=== PATIENT | male | born 1990 | race Caucasian/White ===

== ENCOUNTER 2023-03-06 11:57 | Emergency (ER) | payer OTHER, SELFPAY ==
[2023-03-06 12:13] VITALS: BP 127/82; PULSE 58; RESP 20; TEMP 36.6; O2SAT 97
--- NOTE | 2023-03-06 12:43 | PC.NURSE ---
PT REFUSING COVID, INFLUENZA AND STREP TESTING. NANCY GREEN SCARFER ADVISED.
--- NOTE | 2023-03-06 13:05 | ED.GENADULT ---
HPI - General Adult General Chief complaint: Upper Respiratory Infection Stated complaint: poss sinus infection Source: patient Mode of arrival: ambulatory Limitations: no limitations History of Present Illness HPI narrative: Patient presents for evaluation of rhinorrhea. Symptom onset 2 days ago. Drainage is clear in appearance. He denies any sore throat, fever, chills, nausea, vomiting, or SOB. He has an occasional cough 2/2 postnasal drainage. He smokes approximately 1 pack per day. No recent sick contacts to his knowledge. He took 1 dose of Sudafed without considerable improvement in his symptoms thereafter. Related Data Home Medications Medication Instructions Recorded Confirmed No Home Medications 03/06/23 03/06/23 Allergies Allergy/AdvReac Type Severity Reaction Status Date / Time codeine Allergy Unknown Verified 03/06/23 12:18 Review of Systems Review of Systems: CONSTITUTIONAL: Denies fever, chills, or sweats. EYES: Denies visual changes, redness, or discharge. ENT: Reports clear rhinorrhea. Denies congestion, sore throat, or otalgia. CARDIOVASCULAR: Denies chest pain, palpitations, or edema. RESPIRATORY: Reports occasional cough from postnasal drainage. Denies shortness of breath GASTROINTESTINAL: Denies abdominal pain, nausea, vomiting, or diarrhea. GENITOURINARY: Denies dysuria or hematuria. SKIN: Denies rash or itching. MUSCULOSKELETAL: Denies back pain, joint pain, or myalgia. NEUROLOGIC: Denies headache, numbness, dizziness, or weakness. PSYCHIATRIC: Denies anxiety or depression. [facility] Past Medical History Medical History Family history non-contributory No pertinent past medical history Surgical History Surgical History No pertinent past surgical history Family History Family History Mother Family history non-contributory Social History Social History Smoking packs per day: 1 Smoking cigarettes per day: 20.0 Smoking status: Current every day smoker Substance use: never Gender identity (if verbalized by the patient): Male Spiritual care concerns: No Exam Narrative: GENERAL: Well-appearing, well-nourished, and in no acute distress. HEAD: Normocephalic, atraumatic. EYES: PERRLA and EOMI. ENT: Nares clear, no rhinorrhea or epistaxis. Mucous membranes moist. Oropharynx without tonsillar hypertrophy exudate or other lesions. Bilateral TMs pearly stack nonbulging NECK: Supple. No adenopathy or masses. No carotid bruits or JVD CHEST: Clear to auscultation. No respiratory distress. No wheezes rales or rhonchi HEART: Regular rate and rhythm. No murmur heard. Normal peripheral pulses. ABDOMEN: Soft, nontender, nondistended, normal active bowel sounds. EXTREMITIES: Normal range of motion. No edema. SKIN: Warm, dry, no rash. NEURO: No focal deficits. Alert and oriented x3. PSYCH: Normal mood and affect. Course Course Emergency Course: This is a 32-year-old male who presented for evaluation of a runny nose. He declined any testing. I advised that phenylephrine would likely be of more benefit than sudafed as his primary complaint was rhinorrhea as opposed to congestion. He requested a note for work which was provided. Follow-up with primary provider. Go to the ER for worsening symptoms. Patient in agreement with plan of care Level of Care: Express Care Visit Vital Signs Vital signs: Vital Signs Temperature 36.6 C 03/06/23 12:13 Pulse Rate 58 L 03/06/23 12:13 Respiratory Rate 20 03/06/23 12:13 Blood Pressure 127/82 03/06/23 12:13 Pulse Oximetry 97 03/06/23 12:13 Oxygen Delivery Room Air 03/06/23 12:13 Temperature 36.6 C 03/06/23 12:13 Pulse Rate 58 L 03/06/23 12:13 Respiratory Rate 20
== END 2023-03-06 13:14 | disposition home or self-care (01) ==
PROVIDERS: Emergency Provider Nurse Practitioner; PCP Physician Assistant
DX: J32.9 Chronic sinusitis, unspecified (principal); F17.210 Nicotine dependence, cigarettes, uncomplicated
CPT/HCPCS: 99213; G0463

== ENCOUNTER 2024-11-29 08:50 | Emergency (ER) | payer OTHER, SELFPAY ==
[2024-11-29 08:58] VITALS: BP 115/79; PULSE 58; RESP 20; TEMP 36.7; O2SAT 98
--- OUTSIDE RECORDS SUMMARY | 2024-11-29 08:58 | XMS_ITS | Clinical Summary ---
Author Organization [facility] Address [address] [place] [address] Care Team Providers Care Rim Fire Priming Tool Setter Name Role Phone Antwan Loaiza Primary Care Provider [phone] Allergies Active Allergy Reactions Criticality Noted Date Comments Codeine Hydrocodone-Acetaminophen Medications albuterol HFA (ProAir HFA) 90 mcg/actuation inhaler Inhale 2 puffs every 4 (four) hours as needed for wheezing or shortness of breath 8.5 g Active Active Problems Problem Noted Date Diagnosed Date COVID-19 01/04/2021 Assessment & Plan (01/04/2021 1:15 PM CDT): Prescription sent for albuterol inhaler as well as prednisone taper. In addition patient instructed to Self-isolate 10 days from start of symptoms Increase fluid intake Report new or worsening symptoms Warning signs warranting immediate medical care: chest pain, trouble breathing, worsening shortness of breath Surgical History Surgery Date Site/Laterality Comments TONSILLECTOMY Tonsillectomy ANTERIOR CRUCIATE LIGAMENT REPAIR left Medical History Medical History Date Comments No pertinent past medical history Family History Medical History Relation Name Comments Diabetes Father Heart disease Father Hyperlipidemia Father No Known Problems Mother Breast cancer Other 1 Family history of Cancer, breast; Cancer Other 2 Family history of Cancer, unknown; Relation Name Status Comments Father Alive Mother Alive Other 1 Other 2 Social History Tobacco Use Types Packs/Day Years Used Date Smoking Tobacco: Never Smokeless Tobacco: Never Alcohol Use Standard Drinks/Week Comments No 0 (1 standard drink = 0.6 oz pur e alcohol) Personal Safety Answer Date Recorded Getting School Help Needed Not on file 06/26 Sex and Gender Information Value Date Recorded Sex Assigned at Not on file 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 Gender Identity Not on file Sexual Orientation Not on file Obstetrics History Last Filed Vital Signs Vital Sign Reading Time Taken Comments Blood Pressure 128/86 12/30/2020 9:05 AM CDT Pulse 97 12/30/2020 9:05 AM CDT Temperature 36.4 C (97.6 F) 12/30/2020 9:05 AM CDT Respiratory Rate 20 12/30/2020 9:05 AM CDT Oxygen Saturation 96% 12/30/2020 9:05 AM CDT Inhaled Oxygen Concentration - - Weight 138.7 kg (305 lb 12.8 oz) 12/30/2020 9:05 AM CDT Height 195.6 cm (6' 5) 12/30/2020 9:05 AM CDT Body Mass Index 36.26 12/30/2020 9:05 AM CDT Plan of Treatment Not on file Insurance [facility] Care Teams Rim Fire Priming Tool Setter Relationship Specialty Start Date End Date Antwan Loaiza PA [address] [place] [address] PCP - General 05/15/16
--- OUTSIDE RECORDS SUMMARY | 2024-11-29 08:58 | XMS_ITS | Clinical Summary ---
Author Organization [facility] Address [address] [place] [address] Phone Care Team Providers Care Technical Internship Name Role Phone Antwan Loaiza Primary Care Provider [phone] Allergies Active Allergy Reactions Criticality Noted Date Comments Codeine Hives 10/03/2022 Hydrocodone-Acetaminophen Hives Medium 02/06/2019 Medications traMADol (ULTRAM) 50 MG Tablet Take 1 Tab by mouth every 6 hours as needed for Moderate or more severe pain. 20 Tab 9 Active Additional Information Patient not taking.Reported on 12/23/2022 Active Problems No known active problems Immunizations Immunization Administration Dates Next Due DTP Vaccine 04/01/1995, 3,08/20/1991,04/12,02/12/1991 Hepatitis B Vaccine, Pediatric/adolescent 07/05/1996,01/25/1996,04/01/1995 Hib Vaccine,unspecified Formulation 05/1994,08/20/1991,04/12/1991,02/12 Influenza Vaccine,unspecifie d Formulation 04/10/2003 MMR Vaccine 04/01/1995,09/03/1993 Meningococcal C Conjugate Vaccine 03/07/2006 OPV 04/01/1995, 3,04/12/1991,02/12 TD VACCINE 07/30/2004 TDAP Vaccine 03/07/2006 Td Vaccine (preservative free) 07/16/2024 Social History Tobacco Use Types Packs/Day Years Used Date Smoking Tobacco: Every Day Cigarettes Smokeless Tobacco: Never Tobacco Cessation:Ready to Q uit: Not Asked; Counseling Given: Not Answered Alcohol Use Standard Drinks/Week Comments Not Currently 0 (1 standard drink = 0.6 oz pur e alcohol) Sex and Gender Information Value Date Recorded Sex Assigned at Not on file Legal Sex Male 11:07 PM CDT Gender Identity Not on file Sexual Orientation Not on file Last Filed Vital Signs Vital Sign Reading Time Taken Comments Blood Pressure 133/82 07/16/2024 12:37 PM CDT Pulse 58 07/16/2024 12:37 PM CDT Temperature 36.4 C (97.5 F) 07/16/2024 12:37 PM CDT Respiratory Rate 18 07/16/2024 12:37 PM CDT Oxygen Saturation 100% 07/16/2024 12:37 PM CDT Inhaled Oxygen Concentration - - Weight 127 kg (280 lb) 07/16/2024 12:37 PM CDT Height 195.6 cm (6' 5) 07/16/2024 12:37 PM CDT Body Mass Index 33.2 07/16/2024 12:37 PM CDT Plan of Treatment Health Maintenance Due Date Last Done Comments Hepatitis C Virus (HCV) Screening 1990 Human Papillomavirus (HPV) Immunization (1 - Male 3-dose series) 2005 Pneumococcal Immunization Combined (1 of 2 - PCV) 2009 SARS-COV-2 Immunization (2 - season) 2024 05/11/2021 Influenza Immunization (#1) 2024 04/10/2003 DTaP/Tdap/Td Immunization (8 - Td or Tdap) 07/16/2034 07/16/2024, 03/07/2006, 07/30/2004, Additional history exists Respiratory Syncytial Virus (RSV) Immunization (Adult) (1 - 1-dose 75+ series) 2065 Hepatitis B Immunization Completed 997, 01/25/1996, 04/01/1995 Meningococcal Immunization (ACWY) Aged Out No longer eligible based on patient's age to complete this topic Rotavirus Immunization Aged Out No lo nger eligible based on patient's age to complete this topic Insurance [facility] Care Teams Technical Internship Relationship Specialty Start Date End Date Antwan Loaiza, LAURENCE [address] [place] [id number] PCP - General Physician General Duty Nurse 02/06/19
--- OUTSIDE RECORDS SUMMARY | 2024-11-29 08:58 | XMS_ITS | Referral Summary ---
Author Organization [facility] Address [address] [place] [address] Care Team Providers Care Tungsten Refiner Name Role Phone Antwan Loaiza Primary Care Provider [phone] Allergies Active Allergy Reactions Criticality Noted Date [...] pain, trouble breathing, worsening shortness of breath Social History Tobacco Use Types Packs/Day Years Used Date Smoking Tobacco: Never Smokeless Tobacco: Never Alcohol Use Standard Drinks/Week Comments No 0 (1 standard drink = 0.6 oz pur e alcohol) Personal Safety Answer Date Recorded Getting School Help Needed Not on file 06/26 Sex and Gender Information Value Date Recorded Sex Assigned at Not on file 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
--- NOTE | 2024-11-29 09:19 | ED_ITS ---
HPI - URI/Sore Throat General Chief Complaint: Upper Respiratory Infection Stated Complaint: Coughing Time Seen by Provider: 11/29/24 09:09 Source: patient and RN notes reviewed Mode of arrival: ambulatory Limitations: no limitations History of Present Illness HPI Narrative: Patient presents today complaining of a 6 day history of postnasal drip, cough, sinus pressure. States he had a subjective fever for 1 day at onset of symptoms, but none since then. He had diarrhea 2 days ago but resolved after 1 day. Denies chest pain or shortness of breath. He has tried Mucinex and Sudafed with mild relief. No history of asthma or COPD. Quit smoking 1 year ago. Related Data Home Medications ?Medication ?Instructions ?Recorded ?Confirmed ?Last Taken ?Type No Home Medications 03/06/23 11/29/24 Unknown History Allergies Allergy/AdvReac Type Severity Reaction Status Date / Time acetaminophen (From Vicodin) Allergy Intermediate Rash Verified 11/29/24 09:14 codeine Allergy Intermediate Rash Verified 11/29/24 09:14 hydrocodone (From Vicodin) Allergy Intermediate Rash Verified 11/29/24 09:14 PMFSH Past Medical History Medical History Family history non-contributory No pertinent past medical history Surgical History Surgical History No pertinent past surgical history Family History Family History Mother Family history non-contributory Social History Social History (Updated 11/29/24 @ 09:22 by Venus Larry, [facility], ) Smoking status: Former smoker Tobacco type: cigarettes Smoking end date: 11/30/23 Substance use: never Gender identity (if verbalized by the patient): Male Spiritual care concerns: No Comments At time of signature, I have reviewed and agree with nursing past medical, surgical, social and family history unless otherwise noted. Please see nursing chart for further information. There is no relevant family history pertinent to the presenting complaint Exam Narrative: GENERAL: Well-appearing, well-nourished, and in no acute distress. HEAD: Normocephalic, atraumatic. EYES: EOMI. No redness or drainage. Conjunctivae normal. ENT: Mucous membranes pink and moist. Nares clear with mild rhinorrhea.. TMs normal bilaterally. Throat normal. Uvula midline. NECK: Normal AROM. Supple. No lymphadenopathy. CHEST: No respiratory distress. Clear to auscultation. HEART: Regular rate and rhythm. No murmur appreciated. EXTREMITIES: Normal range of motion. No edema. SKIN: Warm, dry, no rash. Capillary refill normal. Normal skin turgor. NEURO: No focal deficits. Alert and oriented x3. Gait steady. PSYCH: Normal affect. No signs of depression or anxiety. Course Course Level of Care: Express Care Visit Vital Signs Vital signs: Vital Signs Temperature 98.0 F 11/29/24 08:58 Pulse Rate 58 L 11/29/24 08:58 Respiratory Rate 20 11/29/24 08:58 Blood Pressure 115/79 11/29/24 08:58 Pulse Oximetry 98 11/29/24 08:58 Oxygen Delivery Room Air 11/29/24 08:58 Temperature 98.0 F 11/29/24 08:58 Pulse Rate 58 L 11/29/24 08:58 Respiratory Rate 20 11/29/24 08:58 Blood Pressure 115/79 11/29/24 08:58 Pulse Oximetry 98 11/29/24 08:58 Oxygen Delivery Room Air 11/29/24 08:58 Review MDM - URI/Sore Throat MDM Narrative Medical decision making narrative: 33-year-old male patient presents today with a 6 day history of postnasal drip, cough, sinus pressure with 1 day of fever and 2 days of diarrhea. Diarrhea and subjective fever have resolved. No chest pain or shortness of breath. Mucinex and Sudafed have provided some mild relief. Exam grossly normal aside from some mild rhinorrhea. Exam consistent with viral URI. Patient declined prescription for cough medicine stating he has some Robitussin at home. No testing indicated at this time. Anticipatory guidance given. Differential Diagnosis Differential diagnosis: Likely upper respiratory infection, sinusitis, viral infection and bronchitis Critical Care Time Critical Care Time Critical Care Time: No Discharge Plan Discharge Clinical Impression: Upper respiratory infection Qualifiers: URI type: unspecified URI Qualified Code(s): J06.9 - Acute upper respiratory infection, unspecified Patient Disposition: Home Condition: Stable Instructions: Upper Respiratory Infection (DC) Additional Instructions: Your symptoms are likely due to a viral illness, which is not treated with antibiotics. Virus symptoms can last for up to 7-10days. Take ibuprofen or Aleve for pain or fever. Rest and stay hydrated. Follow up with your PCP in 7 days if symptoms are not improving. Go to the ER immediately if you develop shortness of breath, difficulty swallowing, or any other concerning symptoms. Patient Language: Honduran Prescriptions: No Action No Home Medications Follow-up/Referrals: Josse,JAYNA Orlando [Primary Care Provider] - Stand Alone Forms: Work/School Release IP Time of Disposition: 09:20
== END 2024-11-29 09:22 | disposition home or self-care (01) ==
PROVIDERS: Emergency Provider Nurse Practitioner; PCP Physician Assistant
DX: J06.9 Acute upper respiratory infection, unspecified (principal); Z87.891 Personal history of nicotine dependence
CPT/HCPCS: 99211; G0463

== ENCOUNTER 2025-02-13 15:15 | Emergency (ER) | payer OTHER, SELFPAY ==
[2025-02-13 15:25] VITALS: BP 122/70; PULSE 62; RESP 18; TEMP 36.2; O2SAT 100
--- NOTE | 2025-02-13 15:31 | ED.URI ---
HPI - URI/Sore Throat General Chief Complaint: Upper Respiratory Infection Stated Complaint: Sinus Problem Time Seen by Provider: 02/13/25 15:31 Source: patient, RN notes reviewed and old records reviewed Mode of arrival: ambulatory Limitations: no limitations History of Present Illness HPI Narrative: 34 year old male presents to [facility] care with complaints of 1 week duration of sore throat, cough, sinus congestion with drainage,and some hoarseness. Patient reports that congestion and drainage are worse in the morning and his symptoms have become worse for the past 2 days.with no known fevers. Patient reports that he has been taking Theraflu and using cough drops for his symptoms. Patient reports some expectoration of thick clear sputum. MD elicited complaint: cough, sore throat, rhinorrhea, nasal congestion and sinus pain Pertinent past history: sinusitis Onset (ago): week(s) (1) Consistency: progressively worsening Pain scale (0-10): 3 Description of mucous: clear (thick) Able to tolerate fluids by mouth: Yes Treatments prior to arrival: other (Theraflu and cough drops) Related Data Allergies Allergy/AdvReac Type Severity Reaction Status Date / Time acetaminophen (From Vicodin) Allergy Intermediate Rash Verified 02/13/25 15:25 codeine Allergy Intermediate Rash Verified 02/13/25 15:25 hydrocodone (From Vicodin) Allergy Intermediate Rash Verified 02/13/25 15:25 Review of Systems Review of Systems: CONSTITUTIONAL: Denies malaise, chills, sweats, or fever. EYES: Denies visual changes, redness, or discharge. ENT: Reports rhinorrhea, congestion, sinus pain,no otalgia and no sore throat. CARDIOVASCULAR: Denies chest pain, palpitations, or edema. RESPIRATORY: Reports productive cough.? Denies dyspnea. GASTROINTESTINAL: Denies abdominal pain, nausea, vomiting, diarrhea SKIN: Denies rash or itching. MUSCULOSKELETAL: Denies myalgia. NEUROLOGIC: Denies headache. All systems reviewed & are unremarkable except as noted in HPI and below PMFSH Past Medical History Medical History (Updated 02/14/25 @ 08:58 by Carolyne Mcgee NP) Sinusitis Family history non-contributory Surgical History Surgical History No pertinent past surgical history Family History Family History Mother Family history non-contributory Social History Social History (Updated 11/29/24 @ 09:22 by Venus Larry, [facility], ) Smoking status: Former smoker Tobacco type: cigarettes Smoking end date: 11/30/23 Substance use: never Gender identity (if verbalized by the patient): Male Spiritual care concerns: No Comments At time of signature, agree with nursing past medical, surgical, social and family history. There is no relevant family history pertinent to the presenting complaint Exam Narrative: GENERAL: Well-appearing, well-nourished, and in no acute distress. HEAD: Normocephalic EYES: PERRLA, conjunctivae clear ENT: Nares clear, turbinates edematous and erythematous, clear discharge, sinus pressure. Mucous membranes moist. TM pearly stack with dull light reflex bilaterally; no tragal tenderness. Oropharynx erythematous without lesions. Tonsils not enlarged and without exudate, no drooling, positive for hoarseness, no trismus, uvula midline.post nasal drainage NECK: Supple. No lymphadenopathy CHEST: Clear to auscultation, breath sounds equal. No wheezing, rhonchi, rales, or stridor. No respiratory distress, speaks in full sentences. cough noted, reports expectoration of thick sputum SAO2 100% on room air HEART: Regular rate and rhythm. No murmur heard. SKIN: Warm, dry, no rash. NEURO: Alert and oriented x3. PSYCH: Normal mood and affect Course Course Emergency Course: Patient is aware of diagnosis, understands and agrees to treatment plan.? Anticipatory guidance given.? Patient agrees to follow-up as directed and is aware of reasons to seek care at the emergency department. Portions of this record may have been created with voice recognition software Level of Care: Express Care Visit Vital Signs Vital signs: Vital Signs Temperature 36.2 C L 02/13/25 15:25 Pulse Rate 62 02/13/25 15:25 Respiratory Rate 18 02/13/25 15:25 Blood Pressure 122/70 02/13/25 15:25 Pulse Oximetry 100 02/13/25 15:25 Oxygen Delivery Room Air 02/13/25 15:25 Temperature 36.2 C L 02/13/25 15:25 Pulse Rate 62 10/15/25 15:25 Respiratory Rate 18 02/13/25 15:25 Blood Pressure 122/70 02/13/25 15:25 Pulse Oximetry 100 02/13/25 15:25 Oxygen Delivery Room Air 02/13/25 15:25 Reviewed MDM - URI/Sore Throat MDM Narrative Medical decision making narrative: Differential diagnosis considered: Villanueva virus, strep pharyngitis, allergic rhinitis, upper respiratory tract infection, sinusitis, rhinosinusitis, nasopharyngitis. viral pharyngitis, otitis media, otitis externa, pneumonia, bronchitis, viral cough syndrome, viral syndrome, and influenza.? Exam findings show no acute concerns or changes; patient is non-toxic appearing and is in no distress.? Patient is appropriate for outpatient treatment and follow-up. Differential Diagnosis Differential diagnosis: Likely upper respiratory infection, sinusitis, viral infection, pharyngitis and other (strep pharyngitis, acute cough) Medical Records Attestation: I reviewed the patient's medical records. Lab Data Attestation: I reviewed the patient's lab results. Lab results narrative: strep screen negative,culture sent Labs: Lab Results 02/13/25 Range/Units 15:33 POC Grp A Strep Screen Negative (Negative) reviewed Critical Care Time Critical Care Time Critical Care Time: No Discharge Plan Discharge Clinical Impression: Cough in adult patient Upper respiratory infection Qualifiers: URI type: unspecified URI Qualified Code(s): J06.9 - Acute upper respiratory infection, unspecified Pharyngitis Qualifiers: Pharyngitis/tonsillitis etiology: unspecified etiology Qualified Code(s): J02.9 - Acute pharyngitis, unspecified Patient Disposition: Home Condition: Stable Instructions: Pharyngitis (ED), Acute Cough (ED) Additional Instructions: Increase fluids especially juices and water Csnp-xhl-aegewky cough and cold medicine of your choice for your symptoms Cough tablets as directed for cough--do not bite, chew or suck on--swallow whole Zyrtec, Claritin or Lauren daily Steroids as directed--take with food heat to the face 20-30 minutes 4-6 times a day for pain Salt water gargles, throat lozenges or throat sprays as desired Mucinex daily for congestion and drainage If your symptoms persist, change or worsen significantly before you can contact your personal physician then please, without delay, go to the emergency department for further evaluation. Follow-up with PCP in 7-10 days or sooner if needed Patient Language: Wolof Prescriptions: New prednisone 20 mg tablet 20 mg PO BID Qty: 10 0RF Rx Instructions: take with food, pm dose before 7 pm Follow-up/Referrals: Josse,JAYNA Orlando [Primary Care Provider] Stand Alone Forms: Work/School Release IP Time of Disposition: 15:55 Quality [place] Coma Scale Eyes: Open Verbal: Oriented and Alert Motor: Follows Commands Jv Coma Total Score: 15
[2025-02-13 15:34] LABS: EDSTREPNEGPOS1 Negative (Negative)
--- OUTSIDE RECORDS SUMMARY | 2025-02-13 17:20 | XMS_ITS | Clinical Summary ---
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
--- OUTSIDE RECORDS SUMMARY | 2025-02-13 17:21 | XMS_ITS | Clinical Summary ---
Author Organization [facility] Address [address] [place] [address] Phone Care Team Providers Care Line Leader Name Role Phone Antwan Loaiza Primary Care Provider [phone] Allergies Active Allergy Reactions Criticality Noted Date [...] 1990 Human Papillomavirus (HPV) Immunization (1 - 3-dose SCDM series) 2017 Influenza Immunization (#1) 2024 04/10/2003 SARS-COV-2 Immunization (2 - season) 2024 05/11/2021 DTaP/Tdap/Td Immunization (8 - Td or Tdap) 07/16/2034 07/16/2024, 03/07/2006, 07/30/2004, Additional history exists Respiratory Syncytial Virus (RSV) Immunization (Adult) (1 - 1-dose 75+ series) 2065 Hepatitis B Immunization Completed 997, 01/25/1996, 04/01/1995 Meningococcal Immunization (ACWY) Aged Out No longer eligible based on patient's age to complete this topic Pneumococcal Immunization Combined Aged Out No longer eligible based on patient's age to complete this topic Rotavirus Immunization Aged Out No lo nger eligible based on patient's age to complete this topic Insurance [facility] [id number] Care Teams Line Leader Relationship Specialty Start Date End Date Antwan Loaiza, [address] [place] [address] PCP - General 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
== END 2025-02-13 16:00 | disposition home or self-care (01) ==
PROVIDERS: Emergency Provider Registered Nurse; PCP Physician Assistant
DX: J06.9 Acute upper respiratory infection, unspecified (principal); J02.9 Acute pharyngitis, unspecified; Z87.891 Personal history of nicotine dependence
CPT/HCPCS: 87081; 87880; 99213; G0463

== ENCOUNTER 2025-04-01 14:07 | Emergency (ER) | payer OTHER, SELFPAY ==
[2025-04-01 14:12] VITALS: BP 120/70; PULSE 55; RESP 20; TEMP 36.3; O2SAT 100
--- NOTE | 2025-04-01 14:12 | ED.GENADULT ---
HPI - General Adult General Chief complaint: Ear Stated complaint: Right Ear Pain Time Seen by Provider: 04/01/25 14:12 Source: patient, RN notes reviewed and old records reviewed Mode of arrival: ambulatory Limitations: no limitations History of Present Illness HPI narrative: 34 year old male who presents to [facility] care with complaints of right ear pain which has progressively gotten worse since last Tuesday. Patient reports that he has tried OTC eardrops without relief of symptoms. Patient reports no sinus drainage fevers or cough, denies any body aches. Patient reports history of ear infections in the past. MD complaint: right ear pain Onset (ago): day(s) (5-6 days) Severity: moderate Treatments prior to arrival: other (OTC ear drops) Related Data Allergies Allergy/AdvReac Type Severity Reaction Status Date / Time acetaminophen (From Vicodin) Allergy Intermediate Rash Verified 04/01/25 14:13 codeine Allergy Intermediate Rash Verified 04/01/25 14:13 hydrocodone (From Vicodin) Allergy Intermediate Rash Verified 04/01/25 14:13 Review of Systems Review of Systems: CONSTITUTIONAL: Denies malaise, chills, sweats, or fever. EYES: Denies visual changes, redness, or discharge. ENT: Reports no rhinorrhea, congestion, sinus pressure, + right otalgia and no sore throat. CARDIOVASCULAR: Denies chest pain, palpitations, or edema. RESPIRATORY: Reports no acute cough.? Denies dyspnea. GASTROINTESTINAL: Denies abdominal pain, nausea, vomiting, diarrhea SKIN: Denies rash or itching. MUSCULOSKELETAL: Denies myalgia. NEUROLOGIC: Denies headache. All systems reviewed & are unremarkable except as noted in HPI and below PMFSH Past Medical History Medical History Sinusitis Family history non-contributory Surgical History Surgical History No pertinent past surgical history Family History Family History Mother Family history non-contributory Social History Social History Smoking status: Former smoker Tobacco type: cigarettes Smoking end date: 11/30/23 Substance use: never Gender identity (if verbalized by the patient): Male Spiritual care concerns: No Comments At time of signature, agree with nursing past medical, surgical, social and family history. There is no relevant family history pertinent to the presenting complaint Exam Narrative: GENERAL: Well-appearing, well-nourished, and in no acute distress. HEAD: Normocephalic EYES: PERRLA, conjunctivae clear ENT: Nares clear, turbinates edematous and erythematous,scant clear discharge. Mucous membranes moist.Right TM red and bulging, Left TM pearly stack with dull light reflex; no tragal tenderness. Oropharynx erythematous without lesions. Tonsils not enlarged and without exudate, no drooling, no hoarseness, no trismus, uvula midline.post nasal drainage. NECK: Supple. No lymphadenopathy CHEST: Clear to auscultation, breath sounds equal. No wheezing, rhonchi, rales, or stridor. No respiratory distress, speaks in full sentences.no acute cough noted SAO2 100% on room air HEART: Regular rate and rhythm. No murmur heard. SKIN: Warm, dry, no rash. NEURO: Alert and oriented x3. PSYCH: Normal mood and affect Course Course Emergency Course: Patient is aware of diagnosis, understands and agrees to treatment plan.? Anticipatory guidance given.? Patient agrees to follow-up as directed and is aware of reasons to seek care at the emergency department. Portions of this record may have been created with voice recognition software Level of Care: Express Care Visit Vital Signs Vital signs: Vital Signs Temperature 36.3 C L 04/01/25 14:12 Pulse Rate 55 L 04/01/25 14:12 Respiratory Rate 20 04/01/25 14:12 Blood Pressure 120/70 04/01/25 14:12 Pulse Oximetry 100 04/01/25 14:12 Oxygen Delivery Room Air 04/01/25 14:12 Temperature 36.3 C L 04/01/25 14:12 Pulse Rate 55 L 04/01/25 14:12 Respiratory Rate 20 04/01/25 14:12 Blood Pressure 120/70 04/01/25 14:12 Pulse Oximetry 100 04/01/25 14:12 Oxygen Delivery Room Air 04/01/25 14:12 Reviewed Critical Care Time Critical Care Time Critical Care Time: No Discharge Plan Discharge Clinical Impression: Otitis media, right Qualifiers: Otitis media type: serous Chronicity: acute Recurrence: not specified as recurrent Qualified Code(s): H65.01 - Acute serous otitis media, right ear Patient Disposition: Home Condition: Stable Instructions: Antibiotic Form, Ear Infection (ED) Additional Instructions: Increase fluids especially juices and water Vufy-qzf-ylzcdyx cough and cold medicine of your choice for your symptoms Zyrtec Claritin or Lauren daily may include plain Sudafed in a.m. heat to the face 20-30 minutes 4-6 times a day for pain Salt water gargles, throat lozenges or throat sprays as desired Antibiotic as directed--finished the medication If your symptoms persist, change or worsen significantly before you can contact your personal physician then please, without delay, go to the emergency department for further evaluation. Follow-up with PCP in 7-10 days or sooner if needed Patient Language: Bahraini Prescriptions: New amoxicillin-pot clavulanate 875-125 mg tablet 1 tablet PO Q12H Qty: 20 0RF Rx Instructions: take all of prescription with food. encourage taking a probiotic while on this medication,or eating activa yogurt Follow-up/Referrals: Josse,JAYNA Orlando [Primary Care Provider] Stand Alone Forms: Work/School Release IP Time of Disposition: 14:32 Quality [place] Coma Scale Eyes: Open Verbal: Oriented and Alert Motor: Follows Commands Jv Coma Total Score: 15
--- OUTSIDE RECORDS SUMMARY | 2025-04-01 15:06 | XMS_ITS | Clinical Summary ---
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
--- OUTSIDE RECORDS SUMMARY | 2025-04-01 15:06 | XMS_ITS | Clinical Summary ---
Author Organization [facility] Address [address] [place] [address] Phone Care Team Providers Care Lumber Driver Name Role Phone Antwan Loaiza Primary Care Provider [phone] Allergies Active Allergy Reactions Criticality Noted Date [...] Comments Hepatitis C Virus (HCV) Screening 1990 Varicella Immunization (1 of 2 - 13+ 2-dose series) 12/13/2003 Human Papillomavirus (HPV) Immunization (1 - 3-dose SCDM series) 2017 Influenza Immunization (#1) 2024 04/10/2003 SARS-COV-2 Immunization ( - season) 2024 05/11/2021 DTaP/Tdap/Td Immunization (8 [...] patient's age to complete this topic Insurance [employer] [facility] Care Teams Lumber Driver Relationship Specialty Start Date End Date Antwan Loaiza PAC [address] [place] [address] 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
== END 2025-04-01 14:36 | disposition home or self-care (01) ==
PROVIDERS: Emergency Provider Registered Nurse; PCP Physician Assistant
DX: H65.01 Acute serous otitis media, right ear (principal); Z87.891 Personal history of nicotine dependence
CPT/HCPCS: 99213; G0463